=== PATIENT | male | born 1940 | race Caucasian/White ===

== ENCOUNTER 2022-12-06 09:57 | Inpatient (IN) | payer MEDICARE, BC ==
[2022-12-06 10:04] LABS: Glucose,Whole Blood 413 mg/dL (70-110)
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
[2022-12-06 11:02] LABS: ALT 35 U/L (4-49); AST 56 U/L (17-59); African American GFR (CKD) 44 (>60 ml/min/1.73 sqM); Albumin 4.2 g/dL (3.5-5.0); Alcohol <10 mg/dL; Alkaline Phosphatase 164 U/L (38-126); Anion Gap 13 mmol/L; Blood Urea Nitrogen 34 mg/dL (9-20); Calcium 8.7 mg/dL (8.4-10.2); Carbon Dioxide 22 mmol/L (22-30); Chloride 93 mmol/L (98-107); Glucose 405 mg/dL (74-99); Non-African American GFR(CKD) 38 (>60 ml/min/1.73 sqM); Potassium 4.6 mmol/L (3.5-5.1); Sodium 128 mmol/L (137-145); Total Bilirubin 0.8 mg/dL (0.2-1.3); Total Protein 7.3 g/dL (6.3-8.2)
[2022-12-06 11:10] LABS: Prothrombin Time 10.7 sec (9.0-12.0)
[2022-12-06 11:24] LABS: Basophils % (A) 0 %; Eosinophils # (A) 0.1 k/uL (0-0.7); Eosinophils % (A) 1 %; HCT 30.1 % (39.0-53.0); HGB 10.2 gm/dL (13.0-17.5); Lymphocytes # (A) 0.4 k/uL (1.0-4.8); Lymphocytes % (A) 5 %; MCH 30.3 pg (25.0-35.0); Monocytes # (A) 0.4 k/uL (0-1.0); Monocytes % (A) 5 %; Neutrophils # (A) 7.6 k/uL (1.3-7.7); Neutrophils % (A) 89 %; Platelet Count 157 k/uL (150-450); Poikilocytosis Slight; RBC 3.38 m/uL (4.30-5.90); RDW 15.7 % (11.5-15.5); WBC 8.5 k/uL (3.8-10.6)
[2022-12-06 12:06] LABS: Appearance,Urine Clear (Clear); Bacteria,Urine Rare /hpf; Bilirubin,Urine Negative (Negative); Blood,Urine Negative (Negative); Color,Urine Light Yellow; Glucose,Urine (UA) 1+ (Negative); Ketones,Urine Negative (Negative); Leukocyte Esterase,Urine Small (Negative); Nitrite,Urine Negative (Negative); Protein,Urine Negative (Negative); Urobilinogen,Urine <2.0 mg/dL (<2.0); WBC,Urine <1 /hpf (0-5)
[2022-12-06] MEDS ORDERED: INSULIN REGULAR 100 UNIT/ML VIAL (IM/SQ) SQ ONE (12:10)
[2022-12-06 12:12] LABS: Amphetamine Screen,Urine Not Detected (NotDetected); Barbiturate Screen,Urine Not Detected (NotDetected); Benzodiazepines Screen,Urine Not Detected (NotDetected); Cocaine Screen,Urine Not Detected (NotDetected); Methadone Screen, Urine Not Detected (NotDetected); Opiate Screen,Urine Not Detected (NotDetected); Oxycodone Screen, Urine Not Detected (NotDetected); Phencyclidine Screen,Urine Not Detected (NotDetected); Tricyclic Antidepressant,Urine Not Detected (NotDetected); Urn Cannabinoid Scrn Not Detected (NotDetected)
--- NOTE | 2022-12-06 12:40 | CT ---
EXAMINATION TYPE: CT ChestAbdPelvis wo con DATE OF EXAM: 12/06/2022 INDICATION: AMS COMPARISON: None CT DLP: 2119.7 mGycm CONTRAST: None TECHNIQUE: Axial images at 5 mm thick sections. Reconstructed images in the coronal plane. Delayed images through the kidneys. FINDINGS: CT CHEST: No suspicious lung nodules or focal infiltrates are present. No enlarged mediastinal or hilar adenopathy is evident. The ascending aorta diameter at the level of the main pulmonary artery is 3.6 cm. The main pulmonary artery diameter at the bifurcation is 3.1 cm. Dense coronary artery calcification is present. CT ABDOMEN: Liver: Normal Spleen: Normal Pancreas: Atrophic Adrenal glands: The adrenal glands are normal. Gallbladder: Normal Kidneys: No masses are evident. Moderate to severe bilateral hydronephrosis is present. Bilateral hyd roureters are present extending to the urinary bladder. There is distention of the urinary bladder. P rostate is minimal prominence. No cysts are present. No renal stones are identified. Aorta: Vascular calcification is within the aorta. Inferior vena cava: Normal. CT PELVIS: No free air is within the abdomen or pelvis. Loops of bowel within the abdomen and pelvis are normal. This study is without oral contrast limi ting bowel evaluation. Appendix: Normal as visualized. Urinary bladder: Standard. Genitourinary structures: Mild prominence of the prostate. Osseous structures: No suspicious lytic or sclerotic lesions. IMPRESSIONS: 1. Moderate to severe bilateral hydronephrosis with severe bilateral hydroureter extending to the uri nary bladder. Urinary bladder is distended. Etiology for hydronephrosis not identified.
[2022-12-06 12:44] LABS: Glucose,Whole Blood 370 mg/dL (70-110)
--- NOTE | 2022-12-06 13:07 | CT ---
EXAMINATION TYPE: CT brain elieser mukherjee DATE OF EXAM: 12/06/2022 COMPARISON: None HISTORY: AMS CT DLP: 2119.7 mGycm, Automated exposure control for dose reduction was used. CONTRAST: Patient injected with 0 mL of Isovue 300. CT of the brain is performed utilizing 3 mm thick sections through the posterior fossa and 3 mm thick sections through the remaining calvarium. Study is performed within 24 hours of arrival to the hospital. Beam hardening artifact from dental am algam is present. No abnormal hyperdensity is present to suggest an acute intracranial hemorrhage. No mass lesion is evident. No acute infarcts are evident. There is mild periventricular white matter hypodensity likely on the basis of chronic white matter ischemic changes. Ventricles and sulci are normal for the patient age. Paranasal sinuses and mastoid air cells within the [id number] are clear. IMPRESSIONS: 1. Atrophy with some mild chronic appearing periventricular white matter ischemic changes. 2. Follow-up MRI can be performed as clinically indicated. CT cervical spine. COMPARISON: None CT of the cervical spine is performed in the axial plane at 2 mm thick sections. Reconstructed image s in the coronal, and sagittal plane are reviewed on the computer. No acute fractures are evident. There is exaggeration of the cervical kyphosis lower cervical spine. Diffuse loss of disc height is to the cervical spine.Vacuum disc phenomenon is present at C6-7. Vertebral body heights are preserved. No spinal canal stenosis is evident. Uncovertebral joint hypertrophy at C2-C3 on the left has moderate foraminal stenosis from uncovertebr al joint hypertrophy. Severe foraminal stenosis is present C3-4 greater on the left. More moderate fo raminal narrowing is present C4-5 C5-6. There is more severe left foraminal stenosis at C6-7 from unc overtebral joint hypertrophy. IMPRESSIONS: 1. No acute osseous abnormality cervical spine. 2. Severe foraminal stenosis discussed above due to uncovertebral joint hypertrophy. 3. Degenerative disc changes and facet changes within the cervical spine
[2022-12-06] MEDS ORDERED: NALOXONE 0.4 MG/ML 1 ML VIAL IV PRN (13:18)
[2022-12-06] MEDS ORDERED: ACETAMINOPHEN TAB 500 MG TAB PO PRN (13:38)
[2022-12-06] MEDS ORDERED: DEXTROSE 50% SYRINGE 50 ML IVP PRN ×2 (15:10)
[2022-12-06] MEDS ORDERED: hydrALAZINE HCL 25 MG TAB PO STA (15:24)
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
[2022-12-06 16:47] LABS: Glucose,Whole Blood 249 mg/dL (70-110)
[2022-12-06] MEDS: INSULIN ASPART (NovoLOG) 100 UNIT/ML VIAL SQ SCH ×2 (17:05→21:18)
[2022-12-06 20:44] LABS: Glucose,Whole Blood 154 mg/dL (70-110)
[2022-12-06] MEDS ORDERED: INSULIN DETEMIR (LEVEMIR) 100 UNIT/ML SYR SQ SCH (21:00)
[2022-12-06] MEDS: hydrALAZINE HCL 25 MG TAB PO SCH (21:18)
[2022-12-06] MEDS: FAMOTIDINE 20 MG TAB PO SCH (21:18)
[2022-12-06] MEDS: HEPARIN SODIUM,PORCINE/PF 5,000 UNIT/0.5 ML SYRINGE SQ SCH (21:18)
[2022-12-07 06:13] LABS: Glucose,Whole Blood 116 mg/dL (70-110)
[2022-12-07] MEDS: INSULIN ASPART (NovoLOG) 100 UNIT/ML VIAL SQ SCH ×5 (06:34→20:45)
[2022-12-07] MEDS ORDERED: allopurinoL 100 MG TAB PO SCH (09:00)
[2022-12-07] MEDS: ATORVASTATIN 40 MG TAB PO SCH (09:23)
[2022-12-07] MEDS: ESCITALOPRAM 10 MG TAB PO SCH (09:23)
[2022-12-07] MEDS: HEPARIN SODIUM,PORCINE/PF 5,000 UNIT/0.5 ML SYRINGE SQ SCH ×2 (09:23→20:45)
[2022-12-07] MEDS: ISOSORBIDE MONONITRATE ER 30 MG TAB.ER.24H PO SCH (09:23)
[2022-12-07] MEDS: hydrALAZINE HCL 25 MG TAB PO SCH (09:23)
[2022-12-07 11:14] LABS: Glucose,Whole Blood 303 mg/dL (70-110)
[2022-12-07 12:06] VITALS: BMI 17.6
[2022-12-07 12:10] LABS: Basophils % (A) 0 %; Eosinophils # (A) 0.1 k/uL (0-0.7); Eosinophils % (A) 2 %; HCT 29.9 % (39.0-53.0); Lymphocytes # (A) 0.7 k/uL (1.0-4.8); Lymphocytes % (A) 10 %; MCH 30.7 pg (25.0-35.0); MCHC 33.3 g/dL (31.0-37.0); Mean Platelet Volume 8.5; Monocytes # (A) 0.4 k/uL (0-1.0); Monocytes % (A) 5 %; Neutrophils # (A) 5.9 k/uL (1.3-7.7); Neutrophils % (A) 81 %; Platelet Count 155 k/uL (150-450); RBC 3.25 m/uL (4.30-5.90); RDW 15.5 % (11.5-15.5); WBC 7.3 k/uL (3.8-10.6)
[2022-12-07 12:13] LABS: ALT 27 U/L (4-49); AST 38 U/L (17-59); African American GFR (CKD) 47 (>60 ml/min/1.73 sqM); Albumin 3.5 g/dL (3.5-5.0); Albumin/Globulin Ratio 1.3; Alkaline Phosphatase 141 U/L (38-126); Anion Gap 11 mmol/L; Blood Urea Nitrogen 32 mg/dL (9-20); Calcium 8.7 mg/dL (8.4-10.2); Carbon Dioxide 24 mmol/L (22-30); Chloride 97 mmol/L (98-107); Globulin 2.8 g/dL; Glucose 242 mg/dL (74-99); Magnesium 1.7 mg/dL (1.6-2.3); Non-African American GFR(CKD) 41 (>60 ml/min/1.73 sqM); Potassium 4.9 mmol/L (3.5-5.1); Sodium 132 mmol/L (137-145); Total Bilirubin 0.5 mg/dL (0.2-1.3); Total Protein 6.3 g/dL (6.3-8.2)
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
[2022-12-07] MEDS: ASPIRIN 81 MG PO SCH (13:14)
[2022-12-07 13:23] LABS: T4, Free (Free Thyroxine) 1.54 ng/dL (0.78-2.19)
[2022-12-07 16:40] LABS: Glucose,Whole Blood 330 mg/dL (70-110)
--- NOTE | 2022-12-07 16:51 | US ---
EXAMINATION TYPE: US carotid duplex BILAT DATE OF EXAM: 12/07/2022 COMPARISON: NONE CLINICAL INDICATION: Male, 82 years old with history of Altered mental status; Inpatient. portable ultrasound TECHNIQUE: Carotid duplex ultrasound examination. Indirect Doppler criteria was utilized. FINDINGS: EXAM MEASUREMENTS: RIGHT: Peak Systolic Velocity (PSV) cm/sec ----- Right CCA: 85.3 ----- Right ICA: 96.8 ----- Right ECA: 124.0 ICA/CCA ratio: 1.1 RIGHT: End Diastole cm/sec ----- Right CCA: 0.0 ----- Right ICA: 14.4 ----- Right ECA: 0.0 LEFT: Peak Systolic Velocity (PSV) cm/sec ----- Left CCA: 98.3 ----- Left ICA: 80.1 ----- Left ECA: 122.6 ICA/CCA ratio: 0.8 LEFT: End Diastole cm/sec ----- Left CCA: 0.0 ----- Left ICA: 12.0 ----- Left ECA: 0.0 VERTEBRALS (direction of flow): Right Vertebral: Antegrade Left Vertebral: Antegrade Rhythm: Arrhythmia [employer]GG[employer] OPERATOR NOTES: No significant stenosis. Plaque visualized in bilateral bulbs. No wall thickenin g seen. IMPRESSION: Less than 50% stenosis of the bilateral carotid bifurcations. Criteria for Assigning % of Stenosis / Diameter reduction (Estimation based on the indirect measurements of the internal carotid artery velocities (ICA PSV). 1. Normal (no stenosis)=ICA PSV < 125 cm/s: ratio < 2.0: ICA EDV<40 cm/s. 2. Less than 50% stenosis=ICA PSV < 125 cm/s: ratio < 2.0: ICA EDV<40 cm/s. 3. 50 to 69% stenosis=ICA PSV of 125 to 230 cm/s: ration 2.0 ? 4.0: ICA EDV 40-100 cm/s. 4. Greater than 70% stenosis to near occlusion= ICA PSV > 230 cm/s: ratio > 4.0: ICA EDV > 100 cm/s. 5. Near occlusion= ICA PSV velocities may be low or undetectable: variable ratio and ICA EDV. 6. Total occlusion=unable to detect flow.
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
--- NOTE | 2022-12-07 17:45 | P.GSCN ---
History of Present Illness Consult date: 12/07/22 Reason for Consult: Hydronephrosis, urinary retention Requesting physician: Sravani Miller History of present illness: The patient is an 82-year-old white male admitted with confusion. His last March and he has not taking care of himself since that time. He is a vague historian. He states that he was hospitalized at [facility] 1-2 months ago, and was treated at that time for a UTI. He has recently experienced urinary incontinence. CT scan shows moderate to severe bilateral hydroureteronephrosis and urinary retention, with the bladder distended above the umbilicus. A Burr catheter was placed, with return of 3.4 L of urine. I am consulted for this reason. Review of Systems - Constitutional Denies chills, Denies fever - Genitourinary Reports as per HPI Past Medical History Past Medical History: Diabetes Mellitus History of Any Multi-Drug Resistant Organisms: None Reported Past Surgical History: Hernia Repair Past Psychological History: Unable to Obtain Smoking Status: Never smoker Past Alcohol Use History: None Reported Past Drug Use History: None Reported Medications and Allergies Home Medications Medication Instructions Recorded Confirmed Type Cephalexin [Keflex] 500 mg PO TID 12/06/22 12/06/22 History Escitalopram [Lexapro] 10 mg PO DAILY 12/06/22 12/06/22 History Allergies Allergy/AdvReac Type Severity Reaction Status Date / Time Unable to Assess Allergy Verified 12/06/22 14:29 Surgical - Exam Vital Signs Pulse Resp BP Pulse Ox 73 18 168/81 98 12/06/22 10:01 12/06/22 10:01 12/06/22 10:01 12/06/22 10:01 - General well developed, well nourished, no distress - Respiratory normal respiratory effort - Abdomen Abdomen: soft, non tender, no guarding, no rigid, no rebound - Genitourinary normal penis with no external lesions, testicles non-tender - Rectum Rectum: normal sphincter tone, no masses, other (Prostate moderately enlarged but smooth) - Psychiatric oriented to time, oriented to person, oriented to place, speech is normal, memory intact Results - Labs 12/07/22 10:34 12/07/22 10:34 Abnormal Lab Results - Last 24 Hours (Table) 12/06/22 12/06/22 12/06/22 Range/Units 10:02 10:25 10:25 RBC 3.38 L (4.30-5.90) m/uL Hgb 10.2 L (13.0-17.5) gm/dL Hct 30.1 L (39.0-53.0) % RDW 15.7 H (11.5-15.5) % Lymphocytes # 0.4 L (1.0-4.8) k/uL Sodium (137-145) mmol/L Chloride (98-107) mmol/L BUN (9-20) mg/dL Creatinine (0.66-1.25) mg/dL Glucose (74-99) mg/dL POC Glucose (mg/dL) 413 H (70-110) mg/dL Alkaline Phosphatase (38-126) U/L Urine Glucose (UA) 1+ H (Negative) Ur Leukocyte Esterase Small H (Negative) Urine Bacteria Rare H (None) /hpf 12/06/22 12/06/22 12/06/22 Range/Units 10:25 12:42 16:46 RBC (4.30-5.90) m/uL Hgb (13.0-17.5) gm/dL Hct (39.0-53.0) % RDW (11.5-15.5) % Lymphocytes # (1.0-4.8) k/uL Sodium 128 L (137-145) mmol/L Chloride 93 L (98-107) mmol/L BUN 34 H (9-20) mg/dL Creatinine 1.67 H (0.66-1.25) mg/dL Glucose 405 H (74-99) mg/dL POC Glucose (mg/dL) 370 H 249 H (70-110) mg/dL Alkaline Phosphatase 164 H (38-126) U/L Urine Glucose (UA) (Negative) Ur Leukocyte Esterase (Negative) Urine Bacteria (None) /hpf 12/06/22 12/07/22 Range/Units 20:42 06:11 RBC (4.30-5.90) m/uL Hgb (13.0-17.5) gm/dL Hct (39.0-53.0) % RDW (11.5-15.5) % Lymphocytes # (1.0-4.8) k/uL Sodium (137-145) mmol/L Chloride (98-107) mmol/L BUN (9-20) mg/dL Creatinine (0.66-1.25) mg/dL Glucose (74-99) mg/dL POC Glucose (mg/dL) 154 H 116 H (70-110) mg/dL Alkaline Phosphatase (38-126) U/L Urine Glucose (UA) (Negative) Ur Leukocyte Esterase (Negative) Urine Bacteria (None) /hpf Diabetes panel 12/06/22 Range/Units 10:25 Sodium 128 L (137-145) mmol/L Potassium 4.6 (3.5-5.1) mmol/L Chloride 93 L (98-107) mmol/L Carbon Dioxide 22 (22-30) mmol/L BUN 34 H (9-20) mg/dL Creatinine 1.67 H (0.66-1.25) mg/dL Glucose 405 H (74-99) mg/dL Calcium 8.7 (8.4-10.2) mg/dL AST 56 (17-59) U/L ALT 35 (4-49) U/L Alkaline Phosphatase 164 H (38-126) U/L Total Protein 7.3 (6.3-8.2) g/dL Albumin 4.2 (3.5-5.0) g/dL Calcium panel 12/06/22 Range/Units 10:25 Calcium 8.7 (8.4-10.2) mg/dL Albumin 4.2 (3.5-5.0) g/dL Pituitary panel 12/06/22 Range/Units 10:25 Sodium 128 L (137-145) mmol/L Potassium 4.6 (3.5-5.1) mmol/L Chloride 93 L (98-107) mmol/L Carbon Dioxide 22 (22-30) mmol/L BUN 34 H (9-20) mg/dL Creatinine 1.67 H (0.66-1.25) mg/dL Glucose 405 H (74-99) mg/dL Calcium 8.7 (8.4-10.2) mg/dL Adrenal panel 12/06/22 Range/Units 10:25 Sodium 128 L (137-145) mmol/L Potassium 4.6 (3.5-5.1) mmol/L Chloride 93 L (98-107) mmol/L Carbon Dioxide 22 (22-30) mmol/L BUN 34 H (9-20) mg/dL Creatinine 1.67 H (0.66-1.25) mg/dL Glucose 405 H (74-99) mg/dL Calcium 8.7 (8.4-10.2) mg/dL Total Bilirubin 0.8 (0.2-1.3) mg/dL AST 56 (17-59) U/L ALT 35 (4-49) U/L Alkaline Phosphatase 164 H (38-126) U/L Total Protein 7.3 (6.3-8.2) g/dL Albumin 4.2 (3.5-5.0) g/dL - Imaging CT scan - abdomen: report reviewed, image reviewed Assessment and Plan Assessment: The patient's recent urinary incontinence was almost certainly the overflow type, due to chronic urinary retention. This is also the cause of the patient's bilateral hydronephrosis. (1) Hydronephrosis Current Visit: Yes Status: Acute Code(s): N13.30 - UNSPECIFIED HYDRONEPHROSIS SNOMED Code(s): 88799321 (2) Retention of urine, unspecified Current Visit: Yes Status: Acute Code(s): R33.9 - RETENTION OF URINE, UNSPECIFIED SNOMED Code(s): 418297644 Plan: Continue Burr catheter drainage. I anticipate that the hydronephrosis and renal function will improve as a result of this. 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 Time with Patient: Greater than 30
[2022-12-07] MEDS: DAPAGLIFLOZIN PROPANEDIOL 10 MG TABLET PO SCH (17:49)
[2022-12-07 20:15] LABS: Glucose,Whole Blood 371 mg/dL (70-110)
[2022-12-07] MEDS: METOPROLOL TARTRATE 12.5 MG TAB PO SCH (20:44)
[2022-12-07] MEDS: FAMOTIDINE 20 MG TAB PO SCH (20:44)
[2022-12-07] MEDS ORDERED: INSULIN DETEMIR (LEVEMIR) 100 UNIT/ML SYR SQ SCH (21:00)
--- NOTE | 2022-12-08 00:12 | EEG ---
ELECTROENCEPHALOGRAM REPORT PREAMBLE: This is an 82-year-old male with episode of mental confusion, and some loss of memory. This study is performed to rule out any epileptiform activity. EEG FINDINGS: This is a 21-channel digital EEG recorded with video component, utilizing 10/20 international system with referential and bipolar montages. Background consists of well developed, well regulated, moderate voltage activity in 6 to 7 hertz theta seen in bihemispheric region. Background is posterior dominant and seems to be slightly reactive to eye opening and closing. Photic driving response was seen with some flash frequencies. Different stages of sleep were not seen. No focal or generalized epileptiform activity was seen. EKG channel showed no obvious arrhythmia. IMPRESSION: This is an abnormal EEG due to background slowing, suggestive of mild encephalopathy. No epileptiform activity was seen. MMODL / IJN: [id number] /
[2022-12-08 05:57] LABS: Glucose,Whole Blood 278 mg/dL (70-110)
[2022-12-08] MEDS: LEVOTHYROXINE 50 MCG TAB PO SCH (06:27)
[2022-12-08] MEDS: INSULIN ASPART (NovoLOG) 100 UNIT/ML VIAL SQ SCH ×7 (06:27→20:40)
[2022-12-08] MEDS: ISOSORBIDE MONONITRATE ER 30 MG TAB.ER.24H PO SCH (08:58)
[2022-12-08] MEDS: ATORVASTATIN 40 MG TAB PO SCH (08:58)
[2022-12-08] MEDS: ESCITALOPRAM 10 MG TAB PO SCH (08:58)
[2022-12-08] MEDS: METOPROLOL TARTRATE 12.5 MG TAB PO SCH ×2 (08:58→20:33)
[2022-12-08] MEDS: HEPARIN SODIUM,PORCINE/PF 5,000 UNIT/0.5 ML SYRINGE SQ SCH ×2 (08:58→20:40)
[2022-12-08] MEDS: DAPAGLIFLOZIN PROPANEDIOL 10 MG TABLET PO SCH (08:58)
[2022-12-08] MEDS: ASPIRIN 81 MG PO SCH (08:58)
[2022-12-08] MEDS: allopurinoL 100 MG TAB PO SCH (08:58)
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
[2022-12-08 11:38] LABS: Glucose,Whole Blood 270 mg/dL (70-110)
[2022-12-08 16:25] LABS: Glucose,Whole Blood 209 mg/dL (70-110)
[2022-12-08 20:33] LABS: Glucose,Whole Blood 257 mg/dL (70-110)
[2022-12-08] MEDS: FAMOTIDINE 20 MG TAB PO SCH (20:40)
[2022-12-08] MEDS ORDERED: INSULIN DETEMIR (LEVEMIR) 100 UNIT/ML SYR SQ SCH (21:00)
[2022-12-09 06:00] LABS: Glucose,Whole Blood 159 mg/dL (70-110)
[2022-12-09] MEDS: INSULIN ASPART (NovoLOG) 100 UNIT/ML VIAL SQ SCH ×7 (06:11→20:52)
[2022-12-09] MEDS: LEVOTHYROXINE 50 MCG TAB PO SCH (06:12)
[2022-12-09 08:16] LABS: African American GFR (CKD) 53 (>60 ml/min/1.73 sqM); Anion Gap 7 mmol/L; Blood Urea Nitrogen 46 mg/dL (9-20); Calcium 9.2 mg/dL (8.4-10.2); Carbon Dioxide 30 mmol/L (22-30); Chloride 101 mmol/L (98-107); Glucose 62 mg/dL (74-99); Non-African American GFR(CKD) 46 (>60 ml/min/1.73 sqM); Potassium 4.2 mmol/L (3.5-5.1); Sodium 138 mmol/L (137-145)
[2022-12-09] MEDS: HEPARIN SODIUM,PORCINE/PF 5,000 UNIT/0.5 ML SYRINGE SQ SCH ×2 (08:27→20:51)
[2022-12-09] MEDS: ASPIRIN 81 MG PO SCH (08:28)
[2022-12-09] MEDS: ATORVASTATIN 40 MG TAB PO SCH (08:28)
[2022-12-09] MEDS: ESCITALOPRAM 10 MG TAB PO SCH (08:29)
[2022-12-09] MEDS: allopurinoL 100 MG TAB PO SCH (08:29)
[2022-12-09] MEDS: ISOSORBIDE MONONITRATE ER 30 MG TAB.ER.24H PO SCH (08:29)
[2022-12-09] MEDS: METOPROLOL TARTRATE 12.5 MG TAB PO SCH ×2 (08:29→20:52)
[2022-12-09] MEDS: DAPAGLIFLOZIN PROPANEDIOL 10 MG TABLET PO SCH (08:29)
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
--- NOTE | 2022-12-09 10:34 | P.PN ---
Subjective Progress Note Date: 12/08/22 Patient was seen for a follow-up. Patient is sitting comfortably in the recliner. He has catheter in place. Patient denies any headache, no dizziness. Mentation is normal. Objective - Vital Signs Vital signs: Vital Signs Temp 97.8 F 12/08/22 14:00 Pulse 66 12/08/22 14:00 Resp 14 12/08/22 14:00 BP 110/55 12/08/22 14:00 Pulse Ox 92 L 12/08/22 14:00 FiO2 Intake & Output 12/07/22 12/08/22 12/08/22 18:59 06:59 18:59 Output Total 440 119 9979 Balance -850 -300 -2300 Weight 58.967 kg Output: Urine 007 927 2221 Other: Voiding Method Indwelling Catheter Indwelling Catheter Indwelling Catheter # Voids 1 - Exam Patient is alert and awake, in no distress. He knows it is November 2022. He knows that he is in [facility] in [place]. Speech and language functions are normal. Examination nonfocal. - Labs CBC & Chem 7: 12/07/22 10:34 12/09/22 07:12 Labs: Abnormal Lab Results - Last 24 Hours (Table) 12/07/22 12/07/22 12/07/22 Range/Units 10:34 15:08 16:39 POC Glucose (mg/dL) 330 H (70-110) mg/dL Hemoglobin A1c 11.1 H (0.0-6.0) % Vitamin B12 973.0 H (200.0-944.0) pg/mL 12/07/22 12/08/22 12/08/22 Range/Units 20:13 05:55 11:36 POC Glucose (mg/dL) 371 H 278 H 270 H (70-110) mg/dL Hemoglobin A1c (0.0-6.0) % Vitamin B12 (200.0-944.0) pg/mL Assessment and Plan Assessment: * Episode of altered mental status, with transient loss of memory. Probable de lirium due to reasons mentioned below. * Hyperglycemia * Anemia * Hyponatremia * Acute kidney injury * Hydronephrosis with hydroureter * Diabetes, not controlled Plan: * EEG was abnormal due to the ground slowing, suggestive of mild encephalopathy. No epileptiform activity was seen. * Carotid Doppler revealed less than 50% stenosis of bilateral ICA. Antegrade flow in both vertebral arteries. * CT head showed no acute process. * B12 973, folate 7.3, TSH slightly elevated 6.58, but normal free T4 1.54, hemoglobin A1c 11.1. IM to address abnormal thyroid functions and to optimize control of diabetes to target A1c < 7.0. We will start folate 1 mg daily. * Urology on board for hydronephrosis. * Patient at present has mild delirium. Recommend patient follow up with cassandra rologist as an outpatient (once delirium has resolved) to rule out any underlying cognitive impairment. * Neurologically clear for discharge. Please call neurology if any concerns. Dr. James Moreno starting neurology service from Saturday.
--- NOTE | 2022-12-09 11:10 | P.PN ---
Subjective Progress Note Date: 12/09/22 Principal diagnosis: Bilateral hydronephrosis, urinary retention The patient is resting and minimally communicative. He expresses no complaints at this time. Objective - Vital Signs Vital signs: Vital Signs Temp 97.9 F 12/09/22 07:01 Pulse 62 12/09/22 07:01 Resp 15 12/09/22 07:01 BP 107/51 12/09/22 07:01 Pulse Ox 98 12/09/22 07:01 FiO2 Intake & Output 12/08/22 12/09/22 12/09/22 18:59 06:59 18:59 Output Total 2300 1100 Balance -2300 -1100 Output: Urine 2300 1100 Other: Voiding Method Indwelling Catheter Indwelling Catheter - Constitutional General appearance: Present: average body habitus, no acute distress - Gastrointestinal Gastrointestinal Comment(s): Soft, nontender, nondistended. - Genitourinary Genitourinary Comment(s): Normal phallus, normal testes. The Burr catheter is draining clear yellow urine. - Labs CBC & Chem 7: 12/07/22 10:34 12/09/22 07:12 Labs: Abnormal Lab Results - Last 24 Hours (Table) 12/08/22 12/08/22 12/08/22 Range/Units 11:36 16:23 20:27 POC Glucose (mg/dL) 270 H 209 H 257 H (70-110) mg/dL 12/09/22 Range/Units 05:59 POC Glucose (mg/dL) 159 H (70-110) mg/dL Assessment and Plan Assessment: Given the amount of urine drained from the bladder, it is likely that the urinary retention is chronic. This explains the patient's urinary incontinence and hydronephrosis. It is unclear at this time whether or not the patient will regain bladder tone. If not, he will require chronic catheterization. (1) Hydronephrosis Current Visit: Yes Status: Acute Code(s): N13.30 - UNSPECIFIED HYDRONEPHROSIS SNOMED Code(s): 80960647 (2) Retention of urine, unspecified Current Visit: Yes Status: Acute Code(s): R33.9 - RETENTION OF URINE, UNSPECIFIED SNOMED Code(s): 703692994 Plan: Continue Burr catheter drainage. 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 He should be discharged home with the Burr catheter and follow up with me in approximately 2 weeks. Arrangements will be made for him to undergo urodynamic testing for further evaluation of his bladder function. Please notify me if I can be of any further assistance during this hospitalization.
[2022-12-09 11:33] LABS: Glucose,Whole Blood 266 mg/dL (70-110)
[2022-12-09] MEDS: FOLIC ACID 1 MG TAB PO SCH (12:02)
[2022-12-09 16:34] LABS: Glucose,Whole Blood 281 mg/dL (70-110)
[2022-12-09 20:03] LABS: Glucose,Whole Blood 334 mg/dL (70-110)
[2022-12-09] MEDS: INSULIN DETEMIR (LEVEMIR) 100 UNIT/ML SYR SQ SCH (20:52)
[2022-12-09] MEDS: FAMOTIDINE 20 MG TAB PO SCH (20:52)
[2022-12-10 05:37] LABS: Glucose,Whole Blood 91 mg/dL (70-110)
[2022-12-10] MEDS: LEVOTHYROXINE 50 MCG TAB PO SCH (06:11)
[2022-12-10] MEDS: INSULIN ASPART (NovoLOG) 100 UNIT/ML VIAL SQ SCH ×7 (06:12→20:38)
[2022-12-10 07:56] VITALS: RESP 17
[2022-12-10] MEDS: FOLIC ACID 1 MG TAB PO SCH (08:28)
[2022-12-10] MEDS: ASPIRIN 81 MG PO SCH (08:28)
[2022-12-10] MEDS: ATORVASTATIN 40 MG TAB PO SCH (08:28)
[2022-12-10] MEDS: DAPAGLIFLOZIN PROPANEDIOL 10 MG TABLET PO SCH (08:28)
[2022-12-10] MEDS: ISOSORBIDE MONONITRATE ER 30 MG TAB.ER.24H PO SCH (08:28)
[2022-12-10] MEDS: HEPARIN SODIUM,PORCINE/PF 5,000 UNIT/0.5 ML SYRINGE SQ SCH ×2 (08:28→20:38)
[2022-12-10] MEDS: allopurinoL 100 MG TAB PO SCH (08:28)
[2022-12-10] MEDS: ESCITALOPRAM 10 MG TAB PO SCH (08:28)
[2022-12-10] MEDS: METOPROLOL TARTRATE 12.5 MG TAB PO SCH ×2 (08:28→20:38)
[2022-12-10 08:40] LABS: HCT 25.1 % (39.6-50.0); HGB 8.1 g/dL (13.0-17.0); MCH 30.5 pg (27.0-32.0); MCHC 32.3 g/dL (32.0-37.0); MCV 94.4 fL (80.0-97.0); Mean Platelet Volume 11.4 fL (9.5-12.2); NRBC Per 100 WBC 0.3 /100 WBCS (0.0-0.0); Platelet Count 149 X 10*3/uL (140-440); RBC 2.66 X 10*6/uL (4.40-5.60); RDW 14.9 % (11.5-14.5)
[2022-12-10 09:15] LABS: African American GFR (CKD) 46.5 (60.0-200.0); Anion Gap 10.3 mmol/L (10.00-18.00); BUN/Creat Ratio 26.94 Ratio (12.00-20.00); Blood Urea Nitrogen 43.1 mg/dL (9.0-27.0); Calcium 9.7 mg/dL (8.7-10.3); Carbon Dioxide 27.7 mmol/L (20.0-27.5); Non-African American GFR(CKD) 40.1 (60.0-200.0); Potassium 4.5 mmol/L (3.5-5.5)
[2022-12-10 11:02] LABS: Glucose,Whole Blood 160 mg/dL (70-110)
[2022-12-10 16:29] LABS: % Iron Saturation 24.67 (15.00-50.00)
[2022-12-10 16:46] LABS: Glucose,Whole Blood 398 mg/dL (70-110)
[2022-12-10 20:25] LABS: Glucose,Whole Blood 198 mg/dL (70-110)
[2022-12-10] MEDS: FAMOTIDINE 20 MG TAB PO SCH (20:38)
[2022-12-10] MEDS: INSULIN DETEMIR (LEVEMIR) 100 UNIT/ML SYR SQ SCH (20:38)
--- NOTE | 2022-12-11 04:58 | PN ---
PROGRESS NOTE DATE OF SERVICE: 12/10/2022 SUBJECTIVE: This is an 82-year-old gentleman, who was admitted with change in mental status, also has been apparently petitioned through APS. The patient continues to be confused. OBJECTIVE: VITAL SIGNS: Pulse is 55, blood pressure 114/60, respirations 17. CHEST: A few scattered rhonchi. ABDOMEN: Soft. NERVOUS SYSTEM: Nonfocal. LABORATORY DATA: Creatinine 1.6, hemoglobin is 8.1. ASSESSMENT: 1. Change in mental status, metabolic encephalopathy. 2. Acute kidney injury. 3. Hyponatremia. 4. 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 5. Diabetes mellitus, type 2. 6. Multiple medical issues. RECOMMENDATIONS AND DISCUSSION: Recommend to continue current management and continue symptomatic treatment. PT, OT evaluation, otherwise possible ECF rehab. Psychiatric consultation for possible guardianship. Otherwise, Urology has recommended prolonged Burr catheter drainage. I would recommend repeat labs in the morning and continue to monitor. Further recommendations to follow. MMODL / IJN: [id number] /
[2022-12-11 06:21] LABS: Glucose,Whole Blood 93 mg/dL (70-110)
[2022-12-11] MEDS: INSULIN ASPART (NovoLOG) 100 UNIT/ML VIAL SQ SCH ×4 (06:22→11:51)
[2022-12-11] MEDS: LEVOTHYROXINE 50 MCG TAB PO SCH (06:24)
[2022-12-11 08:49] LABS: Basophils # (A) 0.05 X 10*3/uL (0.00-0.10); Basophils % (A) 0.7 %; Eosinophils # (A) 0.52 X 10*3/uL (0.04-0.35); Eosinophils % (A) 7.8 %; HCT 25.8 % (39.6-50.0); Immature Grans, Automated 1.8 %; Lymphocytes # (A) 1.11 X 10*3/uL (0.90-5.00); Lymphocytes % (A) 16.6 %; MCH 29.9 pg (27.0-32.0); MCV 96.3 fL (80.0-97.0); Mean Platelet Volume 10.7 fL (9.5-12.2); Monocytes # (A) 0.52 X 10*3/uL (0.20-1.00); Monocytes % (A) 7.8 %; NRBC Per 100 WBC 0.3 /100 WBCS (0.0-0.0); Neutrophils # (A) 4.38 X 10*3/uL (1.80-7.70); Neutrophils % (A) 65.3 %; Platelet Count 161 X 10*3/uL (140-440); RBC 2.68 X 10*6/uL (4.40-5.60); RDW 15.1 % (11.5-14.5)
[2022-12-11 08:57] LABS: African American GFR (CKD) 50.2 (60.0-200.0); Anion Gap 9.4 mmol/L (10.00-18.00); BUN/Creat Ratio 28.47 Ratio (12.00-20.00); Blood Urea Nitrogen 42.7 mg/dL (9.0-27.0); Calcium 9.1 mg/dL (8.7-10.3); Carbon Dioxide 28.6 mmol/L (20.0-27.5); Non-African American GFR(CKD) 43.3 (60.0-200.0); Potassium 4.9 mmol/L (3.5-5.5)
[2022-12-11] MEDS: HEPARIN SODIUM,PORCINE/PF 5,000 UNIT/0.5 ML SYRINGE SQ SCH (09:13)
[2022-12-11] MEDS: ATORVASTATIN 40 MG TAB PO SCH (09:14)
[2022-12-11] MEDS: METOPROLOL TARTRATE 12.5 MG TAB PO SCH (09:14)
[2022-12-11] MEDS: allopurinoL 100 MG TAB PO SCH (09:14)
[2022-12-11] MEDS: ESCITALOPRAM 10 MG TAB PO SCH (09:14)
[2022-12-11] MEDS: FOLIC ACID 1 MG TAB PO SCH (09:14)
[2022-12-11] MEDS: ISOSORBIDE MONONITRATE ER 30 MG TAB.ER.24H PO SCH (09:14)
[2022-12-11] MEDS: DAPAGLIFLOZIN PROPANEDIOL 10 MG TABLET PO SCH (09:14)
[2022-12-11] MEDS: ASPIRIN 81 MG PO SCH (09:14)
--- NOTE | 2022-12-11 10:51 | P.DS ---
Providers Date of admission: 12/06/22 13:18 Attending physician: Sravani Miller Consults: 12/06/22 13:18 Consult Physician Urgent Consulting Provider: Dawit Chiang Consult Reason/Comments: ams Do you want consulting provider notified?: Yes 12/06/22 15:21 Consult Physician Routine Consulting Provider: Dm Sotelo Consult Reason/Comments: severe hydronephrosis and hydroureter Do you want consulting provider notified?: Yes 12/10/22 15:12 Consult Physician Routine Consulting Provider: Ulysses Hatch Consult Reason/Comments: competency Do you want consulting provider notified?: Yes Primary care physician: [facility] Hospital Course: Final diagnosis Change in mental status acute metabolic encephalopathy Acute kidney injury Hyponatremia Severe bilateral hydronephrosis and hydroureter 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 Diabetes mellitus type 2 Multiple medical issues This a discussion This patient be discharged in a stable condition with guarded prognosis at the [facility] total time taken taken is 35 minutes Strip present illness This 10-year-old gentleman admitted with multiple Compass medical issues as mentioned earlier the patient was treated improved significantly sensorium improved please refer to the previous progress notes and consultations for further information at this time the patient be discharged to [facility] for further with her further recommendation follow-up. On exam vitals stable cardio S1 is normal abdomen soft no system no focal S Discharge medications please Please refer to the discharge up with medication reconciliation sheet for list of medications. Follow-up with the primary physician is advised Plan - Discharge Summary Discharge Rx Participant: No New Discharge Prescriptions: New Aspirin 81 mg PO DAILY #30 tab Folic Acid 1 mg PO DAILY #30 tab Isosorbide Mononitrate ER [Imdur] 30 mg PO DAILY #30 tab Atorvastatin [Lipitor] 40 mg PO DAILY #30 tab Metoprolol Tartrate [Lopressor] 12.5 mg PO BID #60 tab Famotidine [Pepcid] 20 mg PO HS #30 tab allopurinoL [Zyloprim] 100 mg PO DAILY #30 tab Dapagliflozin Propanediol [Farxiga] 10 mg PO DAILY #30 tab Insulin Detemir (Levemir) [Levemir] 15 unit SQ HS #1 each Levothyroxine Sodium [Synthroid] 50 mcg PO DAILY@0630 #30 tab Continue Escitalopram [Lexapro] 10 mg PO DAILY Discontinued Cephalexin [Keflex] 500 mg PO TID Discharge Medication List Escitalopram [Lexapro] 10 mg PO DAILY 12/06/22 [History] Aspirin 81 mg PO DAILY #30 tab 12/11/22 [Rx] Atorvastatin [Lipitor] 40 mg PO DAILY #30 tab 12/11/22 [Rx] Dapagliflozin Propanediol [Farxiga] 10 mg PO DAILY #30 tab 12/11/22 [Rx] Famotidine [Pepcid] 20 mg PO HS #30 tab 12/11/22 [Rx] Folic Acid 1 mg PO DAILY #30 tab 12/11/22 [Rx] Insulin Detemir (Levemir) [Levemir] 15 unit SQ HS #1 each 12/11/22 [Rx] Isosorbide Mononitrate ER [Imdur] 30 mg PO DAILY #30 tab 12/11/22 [Rx] Levothyroxine Sodium [Synthroid] 50 mcg PO DAILY@0630 #30 tab 12/11/22 [Rx] Metoprolol Tartrate [Lopressor] 12.5 mg PO BID #60 tab 12/11/22 [Rx] allopurinoL [Zyloprim] 100 mg PO DAILY #30 tab 12/11/22 [Rx] Follow up Appointment(s)/Referral(s): Dm Sotelo MD [STAFF PHYSICIAN] - 2 Weeks David Urrutia DO [Primary Care Provider] - 3 Days Activity/Diet/Wound Care/Special Instructions: [facility]
[2022-12-11 11:15] LABS: Glucose,Whole Blood 214 mg/dL (70-110)
[2022-12-11 13:52] VITALS: BP 120/64; PULSE 46; TEMP 97.8
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
== END 2022-12-11 14:16 | DRG 682 ==
LOC: EC 09:57 → 4SSUR 13:18
PROVIDERS: ADMIT Internal Medicine; ATTEND Internal Medicine
PROC: 4A10X4Z Monitoring of Central Nervous Electrical Activity, External Approach (ICD-10-PCS; principal; 2022-12-07)
DX: N17.9 Acute kidney failure, unspecified (principal); G93.41 Metabolic encephalopathy; I50.32 Chronic diastolic (congestive) heart failure; F05 Delirium due to known physiological condition; E87.1 Hypo-osmolality and hyponatremia; I13.0 Hypertensive heart and chronic kidney disease with heart failure and stage 1 through stage 4 chronic kidney disease, or unspecified chronic kidney disease; D64.9 Anemia, unspecified; I25.10 Atherosclerotic heart disease of native coronary artery without angina pectoris; E11.22 Type 2 diabetes mellitus with diabetic chronic kidney disease; I44.0 Atrioventricular block, first degree; E78.5 Hyperlipidemia, unspecified; E86.0 Dehydration; R33.8 Other retention of urine; E86.1 Hypovolemia; L89.892 Pressure ulcer of other site, stage 2; M48.02 Spinal stenosis, cervical region; M50.30 Other cervical disc degeneration, unspecified cervical region; I65.23 Occlusion and stenosis of bilateral carotid arteries; T68.XXXA Hypothermia, initial encounter; G31.89 Other specified degenerative diseases of nervous system; N13.30 Unspecified hydronephrosis; N18.9 Chronic kidney disease, unspecified; R32 Unspecified urinary incontinence; Z79.84 Long term (current) use of oral hypoglycemic drugs; Z79.899 Other long term (current) drug therapy; Z87.19 Personal history of other diseases of the digestive system
CPT/HCPCS: 36415; 51702; 51798; 70450; 71250; 72125; 74176; 80048; 80053; 80306; 80320; 81001; 82607; 82746; 83036; 83540; 83550; 83735; 84439; 84443; 84484; 85025; 85027; 85610; 85730; 93005; 93880; 95816; 99285